=== PATIENT | female | born 1995 ===

== ENCOUNTER 2016-11-03 21:05 | Emergency (ER) | payer OTHER ==
[2016-11-03 21:49] LABS: Alcohol 388 mg/dL (<10)
--- NOTE | 2016-11-03 22:01 | ED ---
Ramsey Lam Billy, scribed for Wilver Kennedy MD on 11/03/16 at 2116 . Substance Abuse/Use - HPI Summary HPI Summary: 21 y/o female coming to [facility] for evaluation of substance overdose. Patient was attending a concert on [facility] when she was found passed out on the bleachers. EMS states that patient admitted to having EtOH and Darshana tonight. She is somewhat stuporous at this time in the ED. - History Of Current Complaint Chief Complaint: EDSubstanceAbuse Stated Complaint: ETOH Time Seen by Provider: 11/03/16 21:07 Hx Obtained From: EMS Onset/Duration of Drug/ETOH Abuse: Minutes Ingestion History: Type/Name Of Drug - EtOH, darshana Overdose Characteristics: Oral Timing Of Abuse: Binge Use Severity Initially: Moderate Severity Currently: Moderate Character: Stuporous Aggravating Factor(s): Nothing Alleviating Factor(s): Nothing Associated Signs And Symptoms: Negative - Allergies/Home Medications Allergies/Adverse Reactions: Allergies Allergy/AdvReac Type Severity Reaction Status Date / Time Sulfa Antibiotics Allergy HIVES AND Verified 07/12/16 13:35 SWELLING PMH/Surg Hx/FS Hx/Imm Hx Endocrine/Hematology History: Denies: Hx Diabetes Cardiovascular History: Denies: Hx Hypertension, Hx Pacemaker/ICD History: Denies: Hx Renal Disease Sensory History: Denies: Hx Hearing Aid Psychiatric History: Denies: Hx Panic Disorder Infectious Disease History: No Infectious Disease History: Denies: Traveled Outside the [place] in Last 30 Days - Family History Known Family History: Positive: Unknown - Patient is stuporous in the ED and does not provide much history. - Social History Alcohol Use: Weekly Substance Use Type: Reports: None Smoking Status (MU): Never Smoked Tobacco Review of Systems Negative: Fever Neurological: Other - EtOH intox All Other Systems Reviewed And Are Negative: Yes Physical Exam Triage Information Reviewed: Yes Vital Signs On Initial Exam: Initial Vitals Temp Pulse Resp BP Pulse Ox 97.9 F 84 12 106/57 95 11/03/16 21:12 11/03/16 21:12 11/03/16 21:12 11/03/16 21:12 11/03/16 21:12 Vital Signs Reviewed: Yes Appearance: Positive: Well-Appearing, No Pain Distress Skin: Positive: Warm Head/Face: Positive: Normal Head/Face Inspection Eyes: Positive: BHARAT ENT: Positive: Hearing grossly normal Neck: Positive: Supple Respiratory/Lung Sounds: Positive: Breath Sounds Present Cardiovascular: Positive: RRR Abdomen Description: Positive: Nontender, Soft Bowel Sounds: Positive: Present Musculoskeletal: Positive: Strength/ROM Intact Neurological: Positive: Alert, Oriented to Person Place, Time Psychiatric: Positive: Affect/Mood Appropriate Diagnostics - Vital Signs Vital Signs Temp Pulse Resp BP Pulse Ox 11/03/16 21:12 97.9 F 84 12 106/57 95 - Laboratory Lab Results: Lab Results 11/03/16 Range/Units 21:10 Beta HCG, Quant < 0.60 mIU/mL Serum Alcohol 388 H (<10) mg/dL Lab Statement: Any lab studies that have been ordered have been reviewed, and results considered in the medical decision making process. Re-Evaluation - Re-Evaluation First Eval Change: Improved Course/Dx - Diagnoses Provider Diagnoses: Alcohol intoxication Discharge - Discharge Plan Condition: Stable Disposition: HOME Patient Education Materials: Alcohol Intoxication (ED) Referrals: Maral Nagy [Primary Care Provider] - The documentation as recorded by the Ramsey stark Billy accurately reflects the service I personally performed and the decisions made by , Wilver Kennedy MD.
[2016-11-04 06:33] VITALS: BP 102/70
== END 2016-11-04 08:59 | disposition home or self-care (01) ==
LOC: ED 21:05
DX: F10.129 Alcohol abuse with intoxication, unspecified (principal); Y90.8 Blood alcohol level of 240 mg/100 ml or more
CPT/HCPCS: 36415; 80320; 84702; 99282; G0480